=== PATIENT | male | born 1985 | race Caucasian/White ===

== ENCOUNTER 2023-12-29 13:49 | Emergency (ER) | payer OTHER, SELFPAY ==
[2023-12-29 13:57] VITALS: BP 123/82; PULSE 70; RESP 16; TEMP 36.3; O2SAT 99
--- NOTE | 2023-12-29 14:16 | ED.URI ---
HPI - URI/Sore Throat General Chief Complaint: Upper Respiratory Infection Stated Complaint: cough/chills/mouth swelling History of Present Illness HPI Narrative: patient is a 38-year-old male, presents to [facility] with 2 day history of URI symptoms including nasal congestion, sore scratchy throat, clear rhinorrhea and diffuse upper dental pain. He states that he did have an episode of nausea vomiting diarrhea the 1st day of symptom onset however he has not vomited since that time. He does note diffuse dental decay and he has had some dental pain however he is uncertain if this is related to his other symptoms or not. He does believe he has had a fever as he has been hot and then chilled. He denies modifying factors. His significant other is also symptomatic in here today the patient. Related Data Home Medications Medication Instructions Recorded Confirmed acamprosate 333 mg tablet,delayed mg PO 12/29/23 release buspirone 15 mg tablet mg 12/29/23 fluoxetine 40 mg capsule mg 12/29/23 hydroxyzine pamoate 50 mg capsule mg 12/29/23 omeprazole 20 mg capsule,delayed mg 12/29/23 release prazosin 2 mg capsule mg 12/29/23 quetiapine 200 mg tablet mg 12/29/23 sofosbuvir 400 mg-velpatasvir 100 tablet 12/29/23 mg tablet Allergies Allergy/AdvReac Type Severity Reaction Status Date / Time No Known Allergies Allergy Verified 12/29/23 13:56 Review of Systems Constitutional: Constitutional: Reports as per HPI ENT: Reports system reviewed and no additional complaints, except as documented and Reports as per HPI Gastrointestinal: Gastrointestinal: Reports as per HPI Exam Const: General: healthy appearing and no acute distress Nutritional Appearance: well nourished Orientation/consciousness: patient oriented x3 HENMT: Head: normal to inspection Ears: external ears normal and TM abnormal ( Retracted bilaterally otherwise unremarkable) Face and sinus: normal facial exam Mouth: Yes Normal oral and palatal mucosa present and Yes lip normal Teeth and gingiva: abnormal tooth and associated gingiva ( diffuse dental decay and gingival erythema to the upper teeth) Other: most teeth are eroded below gingival line Eyes: Conjunctivae: conjunctivae normal Pupils: Equal, round and reactive pupils present EOM: EOMs intact bilaterally Direct Ophthalmoscopy: no photophobia Neck: Neck: normal visual inspection, no lymphadenopathy and no meningeal signs Resp: Effort & Inspection: normal respiratory effort Auscultation: clear to auscultation bilaterally Cardio: Rate: regular rate Rhythm: regular rhythm GI: GI Palp: Yes Soft to palpation, No Tenderness to palpation present (GI), No Guarding due to palpation present (GI), No Rigid due to palpation, No Hernia present, No Palpable mass present and No Rebound tenderness present Skin: General skin exam: normal color Rashes: no rashes Neuro: General: patient oriented x3, moves all extremities, no meningeal signs, no focal motor deficits and CN's II-XI intact bilaterally Cranial nerves: Yes Nystagmus not present Speech: normal speech Extrem: General: normal to inspection Course Course Emergency Course: patient's symptoms are primarily viral in nature however he does have gross dental decay and dental related to dental abscess cannot be excluded without [employer] x-ray capabilities. Plan therefore treat empirically with oral antibiotics, in addition to a cough suppressant to help provide added symptom relief at home. He is encouraged to push fluids and rest. Continue Tylenol and/or ibuprofen as directed [id number] for pain and inflammation /fever relief. Patient verbalized understanding and agreeable to discharge plan of care. He is encouraged to follow-up with a dentist without fail Level of Care: Express Care Visit ([id number]) Vital Signs Vital signs: Vital Signs Temperature 36.3 C L 12/29/23 13:57 Pulse Rate 70 12/29/23 13:57 Respiratory Rate 16
== END 2023-12-29 14:29 | disposition home or self-care (01) ==
PROVIDERS: Emergency Provider Nurse Practitioner Family; PCP Family Medicine
DX: K02.9 Dental caries, unspecified (principal); J06.9 Acute upper respiratory infection, unspecified
CPT/HCPCS: 99203; G0463

== ENCOUNTER 2024-07-07 12:17 | Emergency (ER) | payer OTHER, SELFPAY ==
--- OUTSIDE RECORDS SUMMARY | 2024-07-07 12:32 | XMS_ITS | Referral Summary ---
Author Organization [facility] Office Center Address [address] [place] [address] Care Team Providers Care Process Treater Name Role Phone Rachna Diaz NP Primary Care Provider [phone] Allergies No known active allergies Medications QUEtiapine (SEROquel) 200 mg tablet Take 1 tablet (200 mg total) by mouth nightly 4 Active prazosin (MINIPRESS) 2 mg capsule Take 1 capsule (2 mg total) by mouth nightly [address] (CAMPRAL) 333 mg EC tabletIndication s:alcoholism Take 2 tablets (666 mg total) by mouth 3 (three) times a day 180 tablet 5 4 Active sofosbuvir-velpa tasvir (Epclusa) 400-100 mg tablet per tabletIndication s:Positive hepatitis C antibody test Take 1 tablet by mouth daily 28 tablet 2 4 Active Additional Information Patient not taking.Reported on 03/08/2024 albuterol HFA (PROVENTIL HFA,VENTOLIN HFA,PROAIR HFA) 90 mcg/actuation inhalerIndicatio ns:Mild intermittent asthma without complication Inhale 2 puffs every 4 (four) hours as needed for wheezing or shortness of breath 1 each 5 4 Active busPIRone (BUSPAR) 15 mg tabletIndication s:RACHEL (generalized anxiety disorder) Take 1 tablet (15 mg total) by mouth 2 (two) times a day 60 tablet 5 4 Active FLUoxetine (PROzac) 60 mg tabletIndication s:Mild episode of recurrent major depressive disorder (HCC),RACHEL (generalized anxiety disorder) Take 1 tablet (60 mg total) by mouth daily 30 tablet 5 4 Active hydrOXYzine (VISTARIL) 50 mg capsuleIndicatio ns:RACHEL (generalized anxiety disorder) Take 1 capsule (50 mg total) by mouth 4 (four) times a day as needed for itching 60 capsule 1 4 Active omeprazole (PriLOSEC) 20 mg capsule TAKE 1 CAPSULE BY MOUTH TWICE A DAY 60 capsule 2 4 Active Active Problems Problem Noted Date Diagnosed Date History of hepatitis C 03/08/2024 Assessment & Plan (03/08/2024 10:33 AM CDT): Patient completed 3 months of Epclusa in October/November. He has not had follow-up labs. I will obtain labs today to confirm SVR. If hepatitis C is not detected, his hepatitis C has been cured and he will need no further follow-up. He should remain sober from alcohol and drug use. Shortness of breath 09/07/2023 Mild intermittent asthma without complication Assessment & Plan (09/07/2023 1:54 PM CDT): Chronic, stable, controlled with PRN medication Continued on albuterol as directed as needed Generalized pain 09/07/2023 Assessment & Plan (09/07/2023 1:54 PM CDT): Chronic, stable, controlled with medication Continued on PRN ibuprofen Annual physical exam 05/31/2023 Assessment & Plan (06/02/2023 5:48 AM LOCKER OPERATOR): Reviewed past and current medical history, surgical history, social history, family history, current medications, and allergies. The chart was updated to identify any changes in these areas. A ROS and PE were performed. Medications and labs were ordered and referrals were made. Discussed recommended immunizations. Patient will follow-up in 4 weeks for further evaluation and management or sooner if needed. Recurrent major depression 05/25/2023 Assessment & Plan (09/07/2023 1:51 PM CDT): Chronic, stable, controlled with medication Reviewed PHQ-9 Continued on fluoxetine 60 mg daily Advised if suicidal ideation or thoughts of harming self or others, to go to ER and/or call [phone] for assistance, agree to contract for safety Assessment & Plan (07/12/2023 5:30 PM LOCKER OPERATOR): Chronic, improved per patient report Reviewed PHQ-9=8, RACHEL-7=6 Continued on Seroquel and fluoxetine Encouraged to establish with Psychiatry and Psychology Advised if suicidal ideation thoughts of self or others, go to ER and/or call [phone] for assistance, agree to contract for safety Assessment & Plan (06/02/2023 5:44 AM LOCKER OPERATOR): Chronic, improved on medication Continued on fluoxetine and Seroquel Encouraged to schedule appointment with Psychiatry and Psychology as previously discussed, list of local providers given, however also recommended checking with insurance company for a list of providers covered under his plan Advised if suicidal ideation or thoughts of harming self or others, to go to ER and/or call [phone] for assistance, agreed to contract for safety Assessment & Plan (05/28/2023 11:01 AM LOCKER OPERATOR): Chronic, uncontrolled, off medication Reviewed PHQ-9-13 Restarted fluoxetine 20 mg daily Advised if suicidal ideation or thoughts of harming self or others, to go to ER and/or call [phone] for assistance, agree to contract for safety Encouraged to establish with a psychiatrist and psychologist or therapist, provided with a list of local providers, however advised checking with insurance for providers that are covered under plan RACHEL (generalized anxiety disorder) 05/25/2023 Assessment & Plan (09/07/2023 1:51 PM CDT): Chronic, stable, controlled on medication Reviewed RACHEL-7 Continued on fluoxetine, buspirone, and hydroxyzine Assessment & Plan (07/12/2023 5:28 PM LOCKER OPERATOR): Chronic, improved per patient report Reviewed PHQ-9=8, RACHEL-7=6 Continued on Seroquel, fluoxetine, buspirone, and hydroxyzine Encouraged to establish with psychiatry and psychologist Assessment & Plan (06/02/2023 5:44 AM LOCKER OPERATOR): Chronic, improved on medication Continued on fluoxetine and Seroquel Encouraged to schedule appointment with Psychiatry and Psychology as previously discussed, list of local providers given, however also recommended checking with insurance company for a list of providers covered under his plan Assessment & Plan (05/28/2023 11:02 AM LOCKER OPERATOR): Chronic, uncontrolled, off medication Reviewed RACHEL-7=19 Restarted fluoxetine 20 mg daily and started on hydroxyzine 25 mg twice daily as needed Encouraged to establish with a psychiatrist and psychologist or therapist, provided with a list of local providers, however advised checking with insurance for providers that are covered under plan 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) 05/25/2023 Assessment & Plan (07/12/2023 5:28 PM LOCKER OPERATOR): Chronicity and stability unknown Continued on hydroxyzine and prazosin Encouraged to establish with Psychiatry and Psychology Assessment & Plan (06/02/2023 5:44 AM LOCKER OPERATOR): Chronic, improved on medication Continued on fluoxetine and Seroquel Assessment & Plan (05/28/2023 11:06 AM LOCKER OPERATOR): Chronic, uncontrolled, off medication Restarted Seroquel 50 mg HS Advised abstinence from alcohol Encouraged to establish with a psychiatrist and psychologist or therapist, provided with a list of local providers, however advised checking with insurance for providers that are covered under plan Need for vaccination 05/25/2023 Vitamin D deficiency 05/25/2023 Assessment & Plan (07/12/2023 5:30 PM LOCKER OPERATOR): Chronicity and stability unknown, currently low normal (34) Advised can take vitamin D3 2000 IU daily with a meal Assessment & Plan (06/02/2023 5:44 AM LOCKER OPERATOR): Chronicity and stability unknown, normal at last check Will monitor periodically Assessment & Plan (05/28/2023 11:05 AM LOCKER OPERATOR): Chronic, stability unknown, not on supplement Ordered vitamin-D 25 OH Screening for thyroid disorder 05/25/2023 Screening, anemia, deficiency, iron 05/25/2023 Alcohol abuse 05/25/2023 Assessment & Plan (03/08/2024 10:37 AM CDT): Patient with history of alcohol use disorder. He has attended rehab program and decreased alcohol use but is still drinking 2-3 shots liquor daily. He did not think acamprosate helped decrease cravings. I will obtain updated labs today. He should work on maintaining sobriety and attend therapy or AA. Discussed the importance of this. If liver labs are normal, he can follow up with PCP. His reflux pain and feeling warm/hot are likely related to alcohol use. Imaging did not show anything that would be causing the pain. Will obtain TSH to rule out thyroid issues. Recommend he avoid foods/drinks that make pain worse. Continue omeprazole. Can consider EGD but recommend he see local GI for workup. Assessment & Plan (08/18/2023 8:28 PM LOCKER OPERATOR): Patient with history of alcohol use disorder. He recently attended rehab program and has been sober for 2 weeks. Patient reports he is still craving alcohol. I will obtain updated labs and FibroSCan today. Patient is agreeable to taking medication to help with cravings. I will determine if patient is a candidate for naltrexone or acamprosate after reviewing labs. He should work on maintaining sobriety and attend therapy or AA. Assessment & Plan (07/12/2023 5:28 PM LOCKER OPERATOR): Chronic, currently in remission, recently discharged from inpatient treatment on 07/06/2023 Encouraged continued abstinence Instructed to establish with Psychiatry and Psychology and suggested joining a support group Advised to keep appointment on 08/18/2023 with clinical pharmacist Assessment & Plan (06/02/2023 5:45 AM LOCKER OPERATOR): Chronic Encouraged to establish with Psychiatry and Psychology and to contact [facility] for assistance with alcohol abuse Assessment & Plan (05/28/2023 11:05 AM LOCKER OPERATOR): Advised abstinence from alcohol Encouraged to establish with a psychiatrist and psychologist or therapist, provided with a list of local providers, however advised checking with insurance for providers that are covered under plan Positive hepatitis C antibody test 05/25/2023 Assessment & Plan (08/18/2023 4:22 PM LOCKER OPERATOR): Patient with hepatitis C, treatment naive. Multiple risk factors present including prior IV drug use, tattoos, incarceration. He is agreeable to proceeding with treatment. He has elevated ALP and liver enzymes. Mot recent abdominal imaging was CT on 12/01/22 that showed hepatic steatosis. Patient to get updated labs today as well as FibroScan to evaluate degree of steatosis and if any fibrosis is present. I discussed the natural history of chronic hepatitis C, including the potential for progression to cirrhosis, liver failure, development of liver cancer, need for a liver transplant, and . I discussed currently available antiviral agents, including their efficacy and adverse effects. I discussed risk factors for transmission, based on blood to blood contact. I recommended not sharing a toothbrush or razor blade. The risk of sexual transmission is less than 1% in a monogamous relationship. However, if there is concern, a condom should prevent transmission of the hepatitis C virus. I discussed the effect of heavy alcohol use on hepatitis C and how the disease can be accelerated. We discussed currently available antiviral therapy, including its efficacy, side effects, and cost. If there are concerns of potential treatment side effects, the patient is asked to contact my office. Pre-treatment, end of treatment and three-month follow up labs will be obtained. Currently, I see no obvious contraindications to antiviral therapy. He will return to clinic in 6 months. Assessment & Plan (07/12/2023 5:27 PM LOCKER OPERATOR): Chronicity and stability unknown Advised continued abstinence from alcohol Encouraged to keep appointment on 08/18/2023 with clinical pharmacist Assessment & Plan (06/02/2023 5:47 AM LOCKER OPERATOR): Recent diagnosis Reviewed labs dated 05/25/2023 Encouraged to keep appointment with hepatology on 08/18/23 Low TSH level 05/25/2023 Assessment & Plan (06/02/2023 5:47 AM LOCKER OPERATOR): Chronicity and stability unknown, with normal free T4 Ordered TSH level to be done in 4-8 weeks Resolved Problems Problem Noted Date Diagnosed Date Resolved Date Acute hepatitis C virus infection 09/07/2023 03/08/2024 Assessment & Plan (09/07/2023 1:52 PM CDT): Acute Continued on Epsula Discontinued omeprazole Gave hepatitis A vaccine, will return in 6 months for 2nd to complete the series Encouraged to follow-up with clinical pharmacist as recommended Encounter to establish care 05/25/2023 05/31/2023 Assessment & Plan (05/28/2023 11:05 AM LOCKER OPERATOR): Reviewed past and current medical history, surgical history, social history, family history, current medications, and allergies. The chart was updated to identify any changes in these areas. A ROS and PE were performed. Medications and labs were ordered and referrals were made. Reviewed recommended immunizations. Patient will follow-up in 4 weeks for further evaluation and management or sooner if needed. History of hepatitis C 05/25/202306/02 Assessment & Plan (05/28/2023 11:03 AM LOCKER OPERATOR): Ordered hepatitis C antibody test Elevated alkaline phosphatase level 05/25/2023 03/08/2024 Assessment & Plan (07/12/2023 5:27 PM LOCKER OPERATOR): Chronicity and stability unknown Advised continued abstinence from alcohol Encouraged to keep appointment on 08/18/2023 with clinical pharmacist Assessment & Plan (06/02/2023 5:47 AM LOCKER OPERATOR): Chronic, stable Reviewed labs dated 05/25/2023 Encouraged to keep appointment with hepatology on 08/18/23 Elevated liver enzymes 05/25/202303/08 Assessment & Plan (07/12/2023 5:27 PM LOCKER OPERATOR): Chronicity and stability unknown Advised continued abstinence from alcohol Encouraged to keep appointment on 08/18/2023 with clinical pharmacist Assessment & Plan (06/02/2023 5:47 AM LOCKER OPERATOR): Recent diagnosis Reviewed labs dated 05/25/2023 Encouraged to keep appointment with hepatology on 08/18/23 Immunizations Name Administration Dates Next Due Hep A, Adult 09/08/2023 Influenza, Quadrivalent, Spl it, Preservative Free, Intramuscular 05/31/2023 Influenza, Unspecified 03/13/2022 Tdap 11/05/2017 Social History Tobacco Use Types Packs/Day Years Used Date Smoking Tobacco: Every Day Cigarettes 0.7 4.1 Started: 2020 Tobacco Cessation:Ready to Q uit: Not Asked; Counseling Given: Not Answered Alcohol Use Standard Drinks/Week Comments Not Currently 0 (1 standard drink = 0.6 oz pur e alcohol) AUDIT-C Answer Date Recorded Q1: How often do you have a drink containing alcohol? 4 or more times a week 05/25/2023 Q2: How many drinks containi ng alcohol do you have on a typical day when you are drinking? 7 to 9 Q3: How often do you have si x or more drinks on one occasion? Daily or almost daily 05/25/2023 PHQ-2 Answer Date Recorded PHQ-2 Total Score (If total score is 3 or more points, staff should administer the PHQ-9) 3 09/07/2023 Personal Safety Answer Date Recorded Have you ever been in or are you currently in a harmful physical or emotional relationship or is someone making you feel afraid or unsafe? Denies 11/04/2023 Sex and Gender Information Value Date Recorded Sex Assigned at Not on file Legal Sex Male 12:52 AM LOCKER OPERATOR Gender Identity Not on file Sexual Orientation Not on file Last Filed Vital Signs Vital Sign Reading Time Taken Comments Blood Pressure 130/77 03/08/2024 10:01 AM CDT Pulse 72 03/08/2024 10:01 AM CDT Temperature 36.7 ??C (98 ??F) 03/08/2024 10:01 AM CDT Respiratory Rate 16 03/08/2024 10:01 AM CDT Oxygen Saturation 96% 03/08/2024 10:01 AM CDT Inhaled Oxygen Concentration - - Weight 71.9 kg (158 lb 9.6 oz) 03/08/2024 10:01 AM CDT Height 180.3 cm (5' 11 ) 03/08/2024 10:01 AM CDT Body Mass Index 22.12 03/08/2024 10:01 AM CDT Plan of Treatment Not on file Procedures Procedure Name Priority Date/Time Associated Diagnosis Comments HEPATITIS C RNA, QUANTITATIVE, PCR Routine 03/08/2024 10:34 AM CDT History of hepatitis C from Last 3 Months or Most Recently Relevant to Health Maintenance Results * Hepatitis C (HCV) RNA PCR, quantitative Blood (03/08/2024 10:34 AM CDT) [facility] HCV RNA result Not Detected [facility] Comment: The quantifiable range of this assay is 15 IU/mL to 100,000,000 IU/mL (1.18 log IU/mL to 8.00 log IU/mL). Testing was performed by the [facility] 6800 HCV Test ([employer] Testing performed at [facility] Current Interpretive Data was last revised on 2021 Blood 03/08/2024 10:3 4 AM CDT 03/08/2024 11:26 AM CDT us Sera Bruce NP LAB MICROBIOLOGY - GENER AL ORDERABLES Final Result JANINA [facility] Department [place] [address] [facility] from Last 3 Months or Most Recently Relevant to Health Maintenance Insurance [employer] [facility] [employer] [facility] Care Teams Process Treater Relationship Specialty Start Date End Date Rachna Diaz NP [address] [place] [id number] PCP - General Family Medicine 05/31/23
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
--- OUTSIDE RECORDS SUMMARY | 2024-07-07 12:33 | XMS_ITS | Clinical Summary ---
Author Organization [facility] Address [address] [place] [address]. [place] [address] [place] [address] Care Team Providers Care Office Receptionist Name Role Phone None, Provider MD Primary Care Provider Unavaila ble Allergies No known active allergies Medications ibuprofen 600 MG tablet Take 1 tablet (600 mg total) by mouth every 6 (six) hours as needed for Pain. 20 tablet 8 Active acetaminophen 500 MG tabletIndications:P ATIENT TOOK 2000 MG. @ 0700 Take 1,000 mg by mouth every 6 (six) hours as needed for Pain. Active cyclobenzaprine 5 MG tablet Take 1 tablet (5 mg total) by mouth 3 (three) times daily as needed for Muscle Spasms. 15 tablet 8 Active colchicine 0.6 MG tablet Take 1 tablet (0.6 mg total) by mouth daily. Take 2 tabs by mouth. Wait one hour, take final tab 3 tablet 2 Active naloxone 4 MG/0.1ML nasal spray 1 spray by Nasal route as needed for Opioid reversal. 2 each 2 Active omeprazole (PRILOSEC) 20 MG capsule Take 1 capsule (20 mg total) by mouth daily. 30 capsule 3 Active ondansetron (ZOFRAN-ODT) 4 MG disintegrating tablet Take 1 tablet (4 mg total) by mouth every 8 (eight) hours as needed for Nausea. 20 tablet 3 Active Social History Tobacco Use Types Packs/Day Years Used Date Smoking Tobacco: Every Day Cigarettes Smokeless Tobacco: Never Tobacco Cessation:Ready to Q uit: Not Asked; Counseling Given: Not Answered Alcohol Use Standard Drinks/Week Comments Yes 10 (1 standard drink = 0.6 oz pu re alcohol) Daily Sex and Gender Information Value Date Recorded Sex Assigned at Not on file Legal Sex Male 5:48 PM CDT Gender Identity Not on file Sexual Orientation Not on file Last Filed Vital Signs Vital Sign Reading Time Taken Comments Blood Pressure 129/82 12/01/2022 7:55 PM CDT Pulse 71 12/01/2022 7:55 PM CDT Temperature 36.4 ??C (97.6 ??F) 12/01/2022 2:45 PM CD T Respiratory Rate 19 12/01/2022 2:45 PM CDT Oxygen Saturation 99% 12/01/2022 7:55 PM CDT Inhaled Oxygen Concentration - - Weight 68 kg (150 lb) 12/01/2022 2:45 PM CDT Height 182.9 cm (6') 12/01/2022 2:45 PM CDT Body Mass Index 20.34 12/01/2022 2:45 PM CDT Plan of Treatment Health Maintenance Due Date Last Done Comments Annual Physical 10/14/1990 Pneumococcal Vaccine: Pediat rics (0 to 5 Years) and At-Risk Patients (6 to 64 Years) (1 of 2 - PCV) 10/14/1993 Hepatitis C 10/14/2005 Hepatitis B Vaccines (1 of 3 - 19+ 3-dose series) 10/14/2006 COVID-19 Vaccine (2023-2 5 season) 2024 Influenza Adult (#1) 2024 DTaP, Tdap and Td Vaccines ( 2 - Td or Tdap) 11/06/2027 11/05/2017 HPV Vaccines Aged Out No longer eligi ble based on patient's age to complete this topic Meningococcal B Vaccine Aged Out No l onger eligible based on patient's age to complete this topic Meningococcal Vaccine Aged Out No sandee irving eligible based on patient's age to complete this topic RSV Immunizations Under 20 Months Aged Out No longer eligible based on patient's age to complete this topic Insurance [employer] Care Teams Office Receptionist Relationship Specialty Start Date End Date None, Provider, PCP - General 06/03/21
--- OUTSIDE RECORDS SUMMARY | 2024-07-07 12:33 | XMS_ITS | Clinical Summary ---
Author Organization [facility] [employer] Address [address] [place] [address] Care Team Providers Care Color Specialist Name Role Phone Brooks Blanchard MD Primary Care Provider Unav ailable Source Comments [facility] [employer],non-owned Affiliates and Associated Physician Practices is amultiple site organization consisting of ambulatory clinics and hospital sitesin [place], [place], [place] and [place]. This disclosure is being madepursuant to the Care Everywhere program and may not contain all information available regarding this patient. Last updated 18.[facility] [employer] Allergies No known active allergies Medications * [...] 01/17/2018 2:28 PM CDT Plan of Treatment Health Maintenance Due Date Last Done Comments HIV SCREENING 10/14/2002 HEPATITIS C SCREENING 10/10/2005 HEPATITIS B VACCINE (1 of 3 - 19+ 3-dose series) 10/14/2006 COVID-19 VACCINE (2023-2 5 season) 2024 INFLUENZA VACCINE (#1) 2024 DEPRESSION SCREENING 06/13/2024 DTAP/TDAP/TD VACCINES (2 - T d or Tdap) 11/06/2027 11/05/2017 ZOSTER VACCINE (1 of 2) 10/14/2037 HIB VACCINE Aged Out No longer eligi ble based on patient's age to complete this topic HPV VACCINE Aged Out No longer eligi ble based on patient's age to complete this topic MENINGOCOCCAL (Group B) VACCINE Aged Out No longer eligible based on patient's age to complete this topic MENINGOCOCCAL VACCINE Aged Out No sandee irving eligible based on patient's age to complete this topic PNEUMOCOCCAL VACCINE Aged Out No long er eligible based on patient's age to complete this topic Advance Directives * Full Code (Latest Code Status on File) Date Activated Date Inactivated Comments 11/06/2017 3:11 AM 11/25/2017 4:00 PM Care Teams Color Specialist Relationship Specialty Start Date End Date Brooks Blanchard MD PCP - General Family Medicine 11/05/17
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
--- OUTSIDE RECORDS SUMMARY | 2024-07-07 12:33 | XMS_ITS | Patient Health Record ---
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 HN referred the client to a disaster recovery manager. Client was agreeable with the referrals. Referral Priority Routine Medications Medication SIG (Take, Route, Frequency, Duration) Notes Start Date End Date Status busPIRone HCl 15 MG 1 tablet Orally Twic e a day for 30 days Active FLUoxetine HCl 60 MG 1 tablet Orally Onc e a day for 30 days Active hydrOXYzine Pamoate 50 MG 1 capsule as n eeded for anxiety Orally three times a day for 30 days 12/09/2023 Active Epclusa 400-100 MG 1 tablet Orally Once a day Active QUEtiapine Fumarate 200 MG 0.5-1 tablet as needed for sleep Orally Once a day for 30 days 12/09/2023 Active Social History Tobacco Use: Social History [...] Education- Some college 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 Inpt Psych Hospitalizations - [facility] 05/2023 - Alcohol addiction, [facility] 2018 - [...] Problem Status W/U Status Risk Notes Problem Posttraumatic stress disorder (79833928) PTSD (post-traumat ic stress disorder) (F43.10) 12/09/19 Active confirmed Problem Hepatitis C (83601047) Hepatitis C (B19.20) 12/09/19 Active confirmed Currently receiving antiviral treatment Problem Generalized anxiety disorder (41479735) RACHEL (generalized anxiety disorder) (F41.1) 12/09/19 Active confirmed Problem Major depressive disorder (098870419) MDD (major depressive disorder) (F32.9) 12/09/19 Active confirmed Problem Disorder caused by alcohol (disorder) (436972976) Alcohol use disorder (F10.99) 12/09/19 Active confirmed Problem History of opioid abuse (179790291030068 ) History of opioid abuse (F11.11) 12/09/19 Active confirmed Vital Signs Height 5ft 11 in in 12/09/2023 Weight 160 lbs 12/09/2023 BMI 22.31 kg/m2 12/09/2023 Encounters Encounter Location Date Provider Diagnosis [address] [address] 12/09/2023 Tanisha Young MDD (major depressive disorder) F32.9 ; PTSD (post-traumatic stress disorder) F43.10 ; Alcohol use disorder F10.99 ; RACHEL (generalized anxiety disorder) F41.1 ; History of opioid abuse F11.11 and Hepatitis C B19.20 Assessments Encounter Date Diagnosis (ICD Code) Assessment Notes Treatment Notes Treatment Clinical Notes Section Notes 12/09/2023 PTSD (post-traumatic stress disorder) (ICD-10 - F43.10) 12/09/2023 MDD (major depressive disorder) (ICD-10 - F32.9) 12/09/2023 Alcohol use disorder (ICD-10 - F10.99) [...] or be administered own oral medications per [facility] protocols. Provided informed consent with understanding of side effects, adverse effects, risks and benefits as well as alternative treatments as previously discussed and with the above recommended medications & other aspects of the treatment program. Agrees to return sooner if symptoms worsen or suicidal or homicidal ideations occur. Plan Of Treatment No Information Insurance Providers Payer Name Payer Address Payer Phone Subscriber Number Group Number Insured Name Patient Relationship to Insured Coverage Start Date Coverage End Date [facility] [address] [place] [phone] [id number] Baltaazr Radfrod Self - patient is the insured [address] [facility] [address] [place] [address] [phone] [id number] Baltazar Radford Self - patient is the insured 4 Medical (General) History Medical History History ICD Code anxiety depression hep c alcohol abuse drug abuse
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
[2024-07-07 12:41] VITALS: BP 131/80; PULSE 67; RESP 16; TEMP 36.6; O2SAT 99
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
== END 2024-07-07 13:25 | disposition home or self-care (01) ==
PROVIDERS: Emergency Provider Nurse Practitioner; PCP Family Medicine
DX: K02.9 Dental caries, unspecified (principal); F17.210 Nicotine dependence, cigarettes, uncomplicated
CPT/HCPCS: 99213; G0463

== ENCOUNTER 2024-08-02 10:15 | Emergency (ER) | payer OTHER, SELFPAY ==
[2024-08-02 10:26] VITALS: BP 118/77; PULSE 109; RESP 16; TEMP 36.5; O2SAT 99
--- OUTSIDE RECORDS SUMMARY | 2024-08-02 10:31 | XMS_ITS | Referral Summary ---
Author Organization [facility] Address [address] [place] [address] Care Team Providers Care Closet Builder Name Role Phone Rachna Diaz NP Primary Care Provider [phone] Allergies No known active allergies Medications QUEtiapine [...] 05/31/2023 Assessment & Plan (06/02/2023 5:48 AM COIL STRAPPER): Reviewed past and current medical history, surgical [...] safety Assessment & Plan (07/12/2023 5:30 PM COIL STRAPPER): Chronic, improved per patient report Reviewed PHQ-9=8, RACHEL-7=6 Continued on Seroquel and fluoxetine Encouraged to establish with Psychiatry and Psychology Advised if suicidal ideation thoughts of self or others, go to ER and/or call [phone] for assistance, agree to contract for safety Assessment & Plan (06/02/2023 5:44 AM COIL STRAPPER): Chronic, improved on medication Continued on fluoxetine [...] safety Assessment & Plan (05/28/2023 11:01 AM COIL STRAPPER): Chronic, uncontrolled, off medication Reviewed PHQ-9-13 Restarted [...] hydroxyzine Assessment & Plan (07/12/2023 5:28 PM COIL STRAPPER): Chronic, improved per patient report Reviewed PHQ-9=8, RACHEL-7=6 Continued on Seroquel, fluoxetine, buspirone, and hydroxyzine Encouraged to establish with psychiatry and psychologist Assessment & Plan (06/02/2023 5:44 AM COIL STRAPPER): Chronic, improved on medication Continued on fluoxetine and Seroquel Encouraged to schedule appointment with Psychiatry and Psychology as previously discussed, list of local providers given, however also recommended checking with insurance company for a list of providers covered under his plan Assessment & Plan (05/28/2023 11:02 AM COIL STRAPPER): Chronic, uncontrolled, off medication Reviewed RACHEL-7=19 Restarted fluoxetine 20 mg daily and started on hydroxyzine 25 mg twice daily as needed Encouraged to establish with a psychiatrist and psychologist or therapist, provided with a list of local providers, however advised checking with insurance for providers that are covered under plan 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) 05/25/2023 Assessment & Plan (07/12/2023 5:28 PM COIL STRAPPER): Chronicity and stability unknown Continued on hydroxyzine and prazosin Encouraged to establish with Psychiatry and Psychology Assessment & Plan (06/02/2023 5:44 AM COIL STRAPPER): Chronic, improved on medication Continued on fluoxetine and Seroquel Assessment & Plan (05/28/2023 11:06 AM COIL STRAPPER): Chronic, uncontrolled, off medication Restarted Seroquel 50 mg HS Advised abstinence from alcohol Encouraged to establish with a psychiatrist and psychologist or therapist, provided with a list of local providers, however advised checking with insurance for providers that are covered under plan Need for vaccination 05/25/2023 Vitamin D deficiency 05/25/2023 Assessment & Plan (07/12/2023 5:30 PM COIL STRAPPER): Chronicity and stability unknown, currently low normal (34) Advised can take vitamin D3 2000 IU daily with a meal Assessment & Plan (06/02/2023 5:44 AM COIL STRAPPER): Chronicity and stability unknown, normal at last check Will monitor periodically Assessment & Plan (05/28/2023 11:05 AM COIL STRAPPER): Chronic, stability unknown, not on supplement Ordered [...] workup. Assessment & Plan (08/18/2023 8:28 PM COIL STRAPPER): Patient with history of alcohol use disorder. [...] AA. Assessment & Plan (07/12/2023 5:28 PM COIL STRAPPER): Chronic, currently in remission, recently discharged from inpatient treatment on 07/06/2023 Encouraged continued abstinence Instructed to establish with Psychiatry and Psychology and suggested joining a support group Advised to keep appointment on 08/18/2023 with bus aide Assessment & Plan (06/02/2023 5:45 AM COIL STRAPPER): Chronic Encouraged to establish with Psychiatry and Psychology and to contact [facility] for assistance with alcohol abuse Assessment & Plan (05/28/2023 11:05 AM COIL STRAPPER): Advised abstinence from alcohol Encouraged to establish with a psychiatrist and psychologist or therapist, provided with a list of local providers, however advised checking with insurance for providers that are covered under plan Positive hepatitis C antibody test 05/25/2023 Assessment & Plan (08/18/2023 4:22 PM COIL STRAPPER): Patient with hepatitis C, treatment naive. Multiple [...] months. Assessment & Plan (07/12/2023 5:27 PM COIL STRAPPER): Chronicity and stability unknown Advised continued abstinence from alcohol Encouraged to keep appointment on 08/18/2023 with bus aide Assessment & Plan (06/02/2023 5:47 AM COIL STRAPPER): Recent diagnosis Reviewed labs dated 05/25/2023 Encouraged to keep appointment with hepatology on 08/18/23 Low TSH level 05/25/2023 Assessment & Plan (06/02/2023 5:47 AM COIL STRAPPER): Chronicity and stability unknown, with normal free [...] complete the series Encouraged to follow-up with bus aide as recommended Encounter to establish care 05/25/2023 05/31/2023 Assessment & Plan (05/28/2023 11:05 AM COIL STRAPPER): Reviewed past and current medical history, surgical [...] 05/25/202306/02 Assessment & Plan (05/28/2023 11:03 AM COIL STRAPPER): Ordered hepatitis C antibody test Elevated alkaline phosphatase level 05/25/2023 03/08/2024 Assessment & Plan (07/12/2023 5:27 PM COIL STRAPPER): Chronicity and stability unknown Advised continued abstinence from alcohol Encouraged to keep appointment on 08/18/2023 with bus aide Assessment & Plan (06/02/2023 5:47 AM COIL STRAPPER): Chronic, stable Reviewed labs dated 05/25/2023 Encouraged to keep appointment with hepatology on 08/18/23 Elevated liver enzymes 05/25/202303/08 Assessment & Plan (07/12/2023 5:27 PM COIL STRAPPER): Chronicity and stability unknown Advised continued abstinence from alcohol Encouraged to keep appointment on 08/18/2023 with bus aide Assessment & Plan (06/02/2023 5:47 AM COIL STRAPPER): Recent diagnosis Reviewed labs dated 05/25/2023 Encouraged to keep appointment with hepatology on 08/18/23 Immunizations Immunization Administration Dates Next Due Hep A, Adult 09/08/2023 Influenza, Quadrivalent, Spl it, Preservative Free, Intramuscular 05/31/2023 Influenza, Unspecified 03/13/2022 Tdap 11/05/2017 Social History Tobacco Use Types Packs/Day Years Used Date Smoking Tobacco: Every Day Cigarettes 0.8 4.1 Started: 2020 Tobacco Cessation:Ready to Q [...] on file Legal Sex Male 12:52 AM COIL STRAPPER Gender Identity Not on file Sexual Orientation Not on file Last Filed Vital Signs Vital Sign Reading Time Taken Comments Blood Pressure 130/77 03/08/2024 10:01 AM CDT Pulse 72 03/08/2024 10:01 AM CDT Temperature 36.7 C (98 F) 03/08/2024 10:01 AM CDT Respiratory Rate 16 [...] PCR, quantitative Blood (03/08/2024 10:34 AM CDT) [facility] HCV RNA result Not Detected [facility] Comment: The quantifiable range of this assay is 15 IU/mL to 100,000,000 IU/mL (1.18 log IU/mL to 8.00 log IU/mL). Testing was performed by the [facility] Test ([employer] Testing performed at [facility] Current Interpretive Data was last revised on 2021 Blood 03/08/2024 10:3 4 AM CDT 03/08/2024 11:26 AM CDT us Sera Bruce NP LAB MICROBIOLOGY - GENER AL ORDERABLES Final Result JANINA [facility] Department [place] [address] [facility] from Last 3 Months or Most Recently Relevant to Health Maintenance Insurance [facility] [facility] [employer] [facility] Care Teams Closet Builder Relationship Specialty Start Date End Date Rachna Diaz NP [address] [place] [id number] PCP - General Family Medicine 05/31/23
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
--- OUTSIDE RECORDS SUMMARY | 2024-08-02 10:32 | XMS_ITS | Referral Summary ---
Author Organization [facility] Address [address] [place] [address] Care Team Providers Care Girls Tennis Coach Name Role Phone Brooks Blanchard MD Primary Care Provider Unav ailable Source Comments [facility],non-owned Affiliates and Associated Physician Practices is amultiple site organization consisting of ambulatory clinics and hospital sitesin [place], [place], [place] and [place]. This disclosure is being madepursuant to the Care Everywhere program and may not contain all information available regarding this patient. Last updated 18.[facility] Allergies No known active allergies Medications * [...] 120 01/17/2018 2:28 PM CDT Temperature 36.6 C (97.9 F) 01/17/2018 2:28 PM CDT Respiratory Rate 18 11/25/2017 1:29 PM CDT [...] 3:11 AM 11/25/2017 4:00 PM Care Teams Girls Tennis Coach Relationship Specialty Start Date End Date Brooks Blanchard MD PCP - General Family Medicine 11/05/17
--- OUTSIDE RECORDS SUMMARY | 2024-08-02 10:32 | XMS_ITS | Clinical Summary ---
Author Organization [facility] Address [address] [place] [address] Care Team Providers Care Clinical Trials Systems Administrator Name Role Phone Brooks Blanchard MD Primary Care Provider Unav ailable Source Comments [facility],non-owned Affiliates and Associated Physician Practices is amultiple site organization consisting of ambulatory clinics and hospital sitesin [place], [place], [place] and [place]. This disclosure is being madepursuant to the Care Everywhere program and may not contain all information available regarding this patient. Last updated 18.[facility] Allergies No known active allergies Medications * [...] 3:11 AM 11/25/2017 4:00 PM Care Teams Clinical Trials Systems Administrator Relationship Specialty Start Date End Date Brooks Blanchard MD PCP - General Family Medicine 11/05/17
--- OUTSIDE RECORDS SUMMARY | 2024-08-02 10:32 | XMS_ITS | Clinical Summary ---
Author Organization [facility] Address [address] [place] [address] Care Team Providers Care Notched Blade Loader Name Role Phone None, Provider MD Primary [...] 71 12/01/2022 7:55 PM CDT Temperature 36.4 C (97.6 F) 12/01/2022 2:45 PM CDT Respiratory Rate 19 12/01/2022 2:45 PM CDT [...] complete this topic Insurance [employer] Care Teams Notched Blade Loader Relationship Specialty Start Date End Date None, Provider, PCP - General 06/03/21
--- OUTSIDE RECORDS SUMMARY | 2024-08-02 10:32 | XMS_ITS | Clinical Summary ---
Author Organization [facility] Address [address] [place] [address] Care Team Providers Care X Ray Technologist Name Role Phone Rachna Diaz NP Primary Care Provider [phone] Allergies No known active allergies Medications QUEtiapine [...] 05/31/2023 Assessment & Plan (06/02/2023 5:48 AM PROCESS AREA SUPERVISOR): Reviewed past and current medical history, surgical [...] safety Assessment & Plan (07/12/2023 5:30 PM PROCESS AREA SUPERVISOR): Chronic, improved per patient report Reviewed PHQ-9=8, RACHEL-7=6 Continued on Seroquel and fluoxetine Encouraged to establish with Psychiatry and Psychology Advised if suicidal ideation thoughts of self or others, go to ER and/or call [phone] for assistance, agree to contract for safety Assessment & Plan (06/02/2023 5:44 AM PROCESS AREA SUPERVISOR): Chronic, improved on medication Continued on fluoxetine [...] safety Assessment & Plan (05/28/2023 11:01 AM PROCESS AREA SUPERVISOR): Chronic, uncontrolled, off medication Reviewed PHQ-9-13 Restarted [...] hydroxyzine Assessment & Plan (07/12/2023 5:28 PM PROCESS AREA SUPERVISOR): Chronic, improved per patient report Reviewed PHQ-9=8, RACHEL-7=6 Continued on Seroquel, fluoxetine, buspirone, and hydroxyzine Encouraged to establish with psychiatry and psychologist Assessment & Plan (06/02/2023 5:44 AM PROCESS AREA SUPERVISOR): Chronic, improved on medication Continued on fluoxetine and Seroquel Encouraged to schedule appointment with Psychiatry and Psychology as previously discussed, list of local providers given, however also recommended checking with insurance company for a list of providers covered under his plan Assessment & Plan (05/28/2023 11:02 AM PROCESS AREA SUPERVISOR): Chronic, uncontrolled, off medication Reviewed RACHEL-7=19 Restarted fluoxetine 20 mg daily and started on hydroxyzine 25 mg twice daily as needed Encouraged to establish with a psychiatrist and psychologist or therapist, provided with a list of local providers, however advised checking with insurance for providers that are covered under plan 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) 05/25/2023 Assessment & Plan (07/12/2023 5:28 PM PROCESS AREA SUPERVISOR): Chronicity and stability unknown Continued on hydroxyzine and prazosin Encouraged to establish with Psychiatry and Psychology Assessment & Plan (06/02/2023 5:44 AM PROCESS AREA SUPERVISOR): Chronic, improved on medication Continued on fluoxetine and Seroquel Assessment & Plan (05/28/2023 11:06 AM PROCESS AREA SUPERVISOR): Chronic, uncontrolled, off medication Restarted Seroquel 50 mg HS Advised abstinence from alcohol Encouraged to establish with a psychiatrist and psychologist or therapist, provided with a list of local providers, however advised checking with insurance for providers that are covered under plan Need for vaccination 05/25/2023 Vitamin D deficiency 05/25/2023 Assessment & Plan (07/12/2023 5:30 PM PROCESS AREA SUPERVISOR): Chronicity and stability unknown, currently low normal (34) Advised can take vitamin D3 2000 IU daily with a meal Assessment & Plan (06/02/2023 5:44 AM PROCESS AREA SUPERVISOR): Chronicity and stability unknown, normal at last check Will monitor periodically Assessment & Plan (05/28/2023 11:05 AM PROCESS AREA SUPERVISOR): Chronic, stability unknown, not on supplement Ordered [...] workup. Assessment & Plan (08/18/2023 8:28 PM PROCESS AREA SUPERVISOR): Patient with history of alcohol use disorder. [...] AA. Assessment & Plan (07/12/2023 5:28 PM PROCESS AREA SUPERVISOR): Chronic, currently in remission, recently discharged from inpatient treatment on 07/06/2023 Encouraged continued abstinence Instructed to establish with Psychiatry and Psychology and suggested joining a support group Advised to keep appointment on 08/18/2023 with head of music Assessment & Plan (06/02/2023 5:45 AM PROCESS AREA SUPERVISOR): Chronic Encouraged to establish with Psychiatry and Psychology and to contact [facility] for assistance with alcohol abuse Assessment & Plan (05/28/2023 11:05 AM PROCESS AREA SUPERVISOR): Advised abstinence from alcohol Encouraged to establish with a psychiatrist and psychologist or therapist, provided with a list of local providers, however advised checking with insurance for providers that are covered under plan Positive hepatitis C antibody test 05/25/2023 Assessment & Plan (08/18/2023 4:22 PM PROCESS AREA SUPERVISOR): Patient with hepatitis C, treatment naive. Multiple [...] months. Assessment & Plan (07/12/2023 5:27 PM PROCESS AREA SUPERVISOR): Chronicity and stability unknown Advised continued abstinence from alcohol Encouraged to keep appointment on 08/18/2023 with head of music Assessment & Plan (06/02/2023 5:47 AM PROCESS AREA SUPERVISOR): Recent diagnosis Reviewed labs dated 05/25/2023 Encouraged to keep appointment with hepatology on 08/18/23 Low TSH level 05/25/2023 Assessment & Plan (06/02/2023 5:47 AM PROCESS AREA SUPERVISOR): Chronicity and stability unknown, with normal free [...] complete the series Encouraged to follow-up with head of music as recommended Encounter to establish care 05/25/2023 05/31/2023 Assessment & Plan (05/28/2023 11:05 AM PROCESS AREA SUPERVISOR): Reviewed past and current medical history, surgical [...] 05/25/202306/02 Assessment & Plan (05/28/2023 11:03 AM PROCESS AREA SUPERVISOR): Ordered hepatitis C antibody test Elevated alkaline phosphatase level 05/25/2023 03/08/2024 Assessment & Plan (07/12/2023 5:27 PM PROCESS AREA SUPERVISOR): Chronicity and stability unknown Advised continued abstinence from alcohol Encouraged to keep appointment on 08/18/2023 with head of music Assessment & Plan (06/02/2023 5:47 AM PROCESS AREA SUPERVISOR): Chronic, stable Reviewed labs dated 05/25/2023 Encouraged to keep appointment with hepatology on 08/18/23 Elevated liver enzymes 05/25/202303/08 Assessment & Plan (07/12/2023 5:27 PM PROCESS AREA SUPERVISOR): Chronicity and stability unknown Advised continued abstinence from alcohol Encouraged to keep appointment on 08/18/2023 with head of music Assessment & Plan (06/02/2023 5:47 AM PROCESS AREA SUPERVISOR): Recent diagnosis Reviewed labs dated 05/25/2023 Encouraged [...] on file Legal Sex Male 12:52 AM PROCESS AREA SUPERVISOR Gender Identity Not on file Sexual Orientation [...] vaccine <65 (1 of 2 - PCV) 10/14/2006 Influenza Vaccine (#1) 2024 05/31/2023, 2021 Regular [...] PCR, quantitative Blood (03/08/2024 10:34 AM CDT) [facility] HCV RNA result Not Detected [facility] Comment: The quantifiable range of this assay is 15 IU/mL to 100,000,000 IU/mL (1.18 log IU/mL to 8.00 log IU/mL). Testing was performed by the [facility] HCV Test ([employer] Testing performed at [facility] Current Interpretive Data was last revised on 2021 Blood 03/08/2024 10:3 4 AM CDT 03/08/2024 11:26 AM CDT Sera Bruce NP LAB MICROBIOLOGY - GENER AL ORDERABLES Final Result JANINA [facility] Department [place] [address] [facility] from Last 3 Months or Most Recently Relevant to Health Maintenance Insurance [facility] Care Teams X Ray Technologist Relationship Specialty Start Date End Date Rachna Diaz NP [address] [place] [address] [phone] PCP - General Family Medicine 05/31/23
--- OUTSIDE RECORDS SUMMARY | 2024-08-02 10:32 | XMS_ITS | Patient Health Summary ---
Author Organization [facility] Address [address] [place] [address] Care Team Providers Care Almond Huller Name Role Phone Brooks Blanchard MD Primary Care Provider Unav ailable Note from [facility],non-owned Affiliates and Associated Physician Practices is amultiple site organization consisting of ambulatory clinics and hospital sitesin [place] and [place]. This disclosure is being madepursuant to the Care Everywhere program and may not contain all information available regarding this patient. Last updated 18.[facility] Allergies No known active allergies Medications [...] is identified. Dictated by Isaiah Ramos MD (associate professor of radiology). I, Dr. AKANKSHA SHI M.D. have personally reviewed and interpreted this examination/study. This report was electronically signed by AKANKSHA SHI M.D. on 11/24/2017 10:16 AM . Narrative 11/24/2017 10:16 [...] is identified. Dictated by Isaiah Ramos MD (associate professor of radiology). Dr. AKANKSHA Ayers M.D. have personally reviewed [...] is normal. Dictated by Isabell Wallis MD (associate professor of radiology). Dr. PIEDAD Ayers have personally reviewed and interpreted this examination/study. This report was electronically signed by PIEDAD CARABALLO on 11/21/2017 10:01 AM . Narrative 11/21/2017 10:01 [...] is normal. Dictated by Isabell Wallis MD (associate professor of radiology). Dr. PIEDAD Ayers have personally reviewed and [...] right rib fractures. Dictated by Enoc Flores (Refrigerating Machine Operator) This report was approved by Enoc Flores M.D. on 11/21/2017 7:[address] DIAZ Ayers M.D. have personally reviewed and interpreted this examination/study. This report was electronically signed by DIAZ PATEL M.D. on 12/03/2017 11:11 AM . Narrative 12/03/2017 11:11 [...] right rib fractures. Dictated by Enoc Flores (Refrigerating Machine Operator) This report was approved by Enoc Flores [...] is included. WBC (corrected for NRBC) 7.6 10 3/uL 11/19/2017 4:59 AM [facility] Total Cell Count 100 11/20/19 18 4:59 AM [facility] Neutrophils Absolute Manual 6.54 1.60 - 7.00 10 3/uL 11/19/2017 4:59 AM [facility] Comment:(BANDS+SEGS) x WBC = NEUT # (ANC) Lymphocyte Absolute Manual 0.61(L) 0.80 - 2.90 10 3/uL 11/19/2017 4:59 AM [facility] Monocytes Absolute Manual 0.46 0.14 - 0.66 10 3/uL 11/19/2017 4:59 AM [facility] Band % Manual 2 0 - 10 % 11/19/2017 4:59 AM [facility] Neutrophil % Manual 84(H) 30 - 60 % 11/19/2017 4:59 AM [facility] Lymphocyte % Manual 8(L) 20 - 45 % 11/19/2017 4:59 AM [facility] Monocytes % Manual 6 2 - 10 % 11/19/2017 4:59 AM [facility] Platelet Estimate Increased (A) Adequate 11/19/2017 4:59 AM [facility] Poikilocytes Few(A) None 11/19/2017 4:59 AM [facility] Smudge Cells Few(A) None 11/19/2017 4:59 AM [facility] Blood BLOOD SPECIMEN / Unknown Venipuncture / Unknown 11/19/2017 2:16 AM CDT 11/19/2017 2:48 AM CDT Danay Vogt EMBEDDED SOFTWARE PROGRAMMER-COMMERCIAL CENSUS TAKER LAB - HEMATOLOGY ORDERABLES [facility] [address] [phone] * (ABNORMAL) CBC W AUTO DIFFERENTIAL (11/19/2017 2:16 AM CDT) Only the most recent of15 resultswithin the time period is included. WBC 7.6 3.5 - 10.5 10 3/uL 11/19/2017 3:08 AM [facility] RBC 2.78(L) 4.30 - 5.70 10 6/uL 11/19/2017 3:08 AM [facility] Hemoglobin 8.0(L) 13.5 - 17.5 g/dL 11/19/2017 3:08 AM [facility] Hematocrit 24.4(L) 39.0 - 50.0 % 11/19/2017 3:08 AM [facility] MCV 87.8 81.0 - 97.0 fL 11/19/2017 3:08 AM [facility] MCH 28.8 28.0 - 34.0 pg 11/19/2017 3:08 AM [facility] MCHC 32.8 32.0 - 36.0 g/dL 11/19/2017 3:08 AM [facility] Platelet Count 780(H) 150 - 400 10 3/uL 11/19/2017 3:08 AM [facility] RDW-SD 46.7 36.0 - 50.0 fL 11/19/2017 3:08 AM [facility] RDW-CV 14.5 11.2 - 14.8 % 11/19/2017 3:08 AM [facility] MPV 9.0(L) 9.3 - 12.8 fL 11/19/2017 3:08 AM [facility] Blood BLOOD SPECIMEN / Unknown Venipuncture / Unknown 11/19/2017 2:16 AM CDT 11/19/2017 2:48 AM CDT Danay Vogt EMBEDDED SOFTWARE PROGRAMMER-COMMERCIAL CENSUS TAKER LAB - HEMATOLOGY ORDERABLES [facility] [address] [phone] * (ABNORMAL) CBC W/O DIFFERENTIAL (11/18/2017 10:47 AM CDT) Only the most recent of3 resultswithin the time period is included. WBC 8.7 3.5 - 10.5 10 3/uL 11/18/2017 11:21 AM [facility] Comment:Confirmed by repeat analysis. RBC 2.90(L) 4.30 - 5.70 10 6/uL 11/18/2017 11:21 AM [facility] Hemoglobin 8.4(L) 13.5 - 17.5 g/dL 11/18/2017 11:21 AM [facility] Comment:Confirmed by repeat analysis. Hematocrit 25.4(L) 39.0 - 50.0 % 11/18/2017 11:21 AM [facility] MCV 87.6 81.0 - 97.0 fL 11/18/2017 11:21 AM [facility] MCH 29.0 28.0 - 34.0 pg 11/18/2017 11:21 AM [facility] MCHC 33.1 32.0 - 36.0 g/dL 11/18/2017 11:21 AM [facility] Platelet Count 811(H) 150 - 400 10 3/uL 11/18/2017 11:21 AM [facility] RDW-SD 46.5 36.0 - 50.0 fL 11/18/2017 11:21 AM [facility] RDW-CV 14.4 11.2 - 14.8 % 11/18/2017 11:21 AM [facility] MPV 9.3 9.3 - 12.8 fL 11/18/2017 11:21 AM CDT [facility] Blood BLOOD SPECIMEN / Unknown Lab Venipuncture / Unknown 11/18/2017 10:47 AM CDT 11/18/2017 11:01 AM CDT Danay Noe Vogt EMBEDDED SOFTWARE PROGRAMMER-COMMERCIAL CENSUS TAKER LAB - HEMATOLOGY ORDERABLES [facility] [address] [phone] * (ABNORMAL) BASIC METABOLIC PANEL (CALCIUM TOTAL) (11/18/2017 2:36 AM CDT) Only the most recent of14 resultswithin the time period is included. BUN 14 7 - 26 mg/dL 11/18/2017 3:33 AM [facility] Creatinine 0.6 0.6 - 1.2 mg/dL 11/18/2017 3:33 AM [facility] Sodium 136 136 - 145 mmol/L 11/18/2017 3:33 AM [facility] Potassium 4.1 3.5 - 4.5 mmol/L 11/18/2017 3:33 AM [facility] Chloride 106 98 - 107 mmol/L 11/18/2017 3:33 AM [facility] CO2 24 22 - 29 mmol/L 11/18/2017 3:33 AM [facility] Glucose 103 70 - 115 mg/dL 11/18/2017 3:33 AM [facility] Calcium 7.4(L) 8.4 - 10.2 mg/dL 11/18/2017 3:33 AM [facility] Anion Gap 10 8 - 18 11/18/2017 3:33 AM [facility] BUN/Creatinine Ratio 23 7 - 23 11/18/2017 3:33 AM [facility] Osmolality Calculated 283 270 - 300 mOsm/kg 11/18/2017 3:33 AM [facility] eGFR >60 >60 mL/min/1.7 3 m2 11/18/2017 3:33 AM [facility] Blood BLOOD SPECIMEN / Unknown Line Draw / Unknown 11/18/2017 2:36 AM CDT 11/18/2017 3:11 AM CDT Kvng Lima Jr., MD LAB - CHEMISTR Y ORDERABLES Performing Organization Address City/[facility] Co de Phone Number [address] [phone] * PHOSPHORUS BLOOD (11/18/2017 2:36 AM CDT) Only the most recent of13 resultswithin the time period is included. Phosphorus 2.9 2.3 - 4.7 mg/dL 11/18/2017 3:30 AM CDT [facility] Blood BLOOD SPECIMEN / Unknown Line Draw / Unknown 11/18/2017 2:36 AM CDT 11/18/2017 3:11 AM CDT Kvng Lima Jr., MD LAB - CHEMISTR Y ORDERABLES Performing Organization Address [facility] Co de Phone Number [address] [phone] * MAGNESIUM BLOOD (11/18/2017 2:36 AM CDT) Only the most recent of12 resultswithin the time period is included. Magnesium 1.7 1.6 - 2.6 mg/dL 11/18/2017 3:30 AM CDT [facility] Blood BLOOD SPECIMEN / Unknown Line Draw / Unknown 11/18/2017 2:36 AM CDT 11/18/2017 3:11 AM CDT Kvng Lima Jr., MD LAB - CHEMISTR Y ORDERABLES [address] [phone] * (ABNORMAL) CALCIUM IONIZED WHOLE BLOOD (11/17/2017 2:51 AM CDT) Only the most recent of11 resultswithin the time period is included. Ionized Calcium Whole Blood 1.09 mmol/L 11/17/2017 3:23 AM CDT [facility] Adjusted Ionized Calcium 1.12(L) 1.19 - 1.34 mmol/L 11/17/2017 3:23 AM CDT [facility] pH Whole Blood 7.45 7.35 - 7.45 11/17/2017 3:23 AM CDT [facility] Blood BLOOD SPECIMEN / Unknown Line Draw / Unknown 11/17/2017 2:51 AM CDT 11/17/2017 3:12 AM CDT Thomas Rojas MD LAB - CHEMISTRY ISAURA REBOLLEDO Performing Organization Address City/[facility]/ZIP Co de Phone Number [facility] [address] [phone] * CULTURE WOUND+GRAM STAIN (11/16/2017 12:58 PM CDT) Culture No growth MAKENNA 11/24/2017 1:28 PM CDT [facility] Gram Stain Moderate White blood cells 11/24/2017 1:28 PM CDT [facility] Gram Stain No organisms seen 11/24/2017 1:28 PM CDT [facility]CRO[facility] Microbiology ENTIRE PLEURAL CAVITY / Unknown Collection / Unknown 11/16/2017 12:58 PM CDT 11/16/2017 3:24 PM CDT Sai Campos MD LAB - MICROBIOLOGY ORDERABLES Performing Organization Address [facility] Co de Phone Number [facility]CROBIOLOGY [address] [place] [address], [facility] [phone] * CULTURE ANAEROBE (11/16/2017 12:58 PM CDT) Culture No anaerobic organisms isolated MAKENNA 11/24/2017 8:28 AM CDT [facility] MICROBIOLOGY Microbiology ENTIRE PLEURAL CAVITY / Unknown Collection / Unknown 11/16/2017 12:58 PM CDT 11/16/2017 3:24 PM CDT Sai Campos MD LAB - MICROBIOLOGY ORDERABLES Performing Organization Address [facility] Co de Phone Number [facility] MICROBIOLOGY [address] [place] [address], [facility] [phone] * (ABNORMAL) BLOOD GASES ART COMPLETE [facility] OR (11/16/2017 12:44 PM [facility]) Only the most recent of3 resultswithin the time period is included. pH Arterial 7.40 7.35 - 7.45 11/16/2017 12:47 PM [facility] pCO2 Arterial 40 35 - 45 mmHg 11/16/2017 12:47 PM [facility] pO2 Arterial 137(H) 82 - 106 mmHg 11/16/2017 12:47 PM [facility] HCO3 Arterial 23.8 22.0 - 26.0 mmol/L 11/16/2017 12:47 PM [facility] TCO2 Arterial 25.0 25.0 - 29.0 mmol/L 11/16/2017 12:47 PM [facility] Base Excess Arterial -0.9 -2.0 - 2.0 mmol/L 11/16/2017 12:47 PM [facility] Hemoglobin Arterial 11.1(L) 13.5 - 17.5 g/dL 11/16/2017 12:47 PM [facility] Oxyhemoglobin Arterial 97.7 95.0 - 100.0 % 11/16/2017 12:47 PM [facility] Carboxyhemoglobin 0.3 0.0 - 3.0 % 11/16/2017 12:47 PM [facility] Methemoglobin 0.4 0.0 - 2.0 % 11/16/2017 12:47 PM [facility] FI O2 Arterial 60.0 % 11/16/2017 12:47 PM [facility] Ionized Calcium Whole Blood 1.04 mmol/L 11/16/2017 12:47 PM [facility] Adjusted Ionized Calcium 1.04(L) 1.19 - 1.34 mmol/L 11/16/2017 12:47 PM [facility] Sodium Whole Blood 134(L) 135 - 145 mmol/L 11/16/2017 12:47 PM [facility] Potassium Whole Blood 4.3 3.5 - 5.5 mmol/L 11/16/2017 12:47 PM [facility] Chloride Whole Blood 104 101 - 111 mmol/L 11/16/2017 12:47 PM [facility] Glucose Whole Blood 102 70 - 110 mg/dL 11/16/2017 12:47 PM CDT [facility] Lactic Acid Whole Blood 0.7 0.5 - 3.4 mmol/L 11/16/2017 12:47 PM CDT [facility] Blood ARTERIAL BLOOD SPECIMEN / Unknown Venipuncture / Unknown 11/16/2017 12:44 PM CDT 11/16/2017 12:44 PM CDT Sai Hooks MD LAB - BLOOD GASES OR DERABLES [address] [phone] * PREPARE (CROSSMATCH) RBC UNIT(S), 1 Units (11/16/2017 6:02 AM CDT) Only the most recent of5 resultswithin the time period is included. Unit Description N/A [facility] Blood Bank BLOOD SPECIMEN / Unknown 11/16/2017 6:02 AM CDT 11/16/2017 6:02 AM CDT Sai Martínez MD LAB - BLOOD BANK O RDERABLES Performing Organization Address [facility] Co de Phone Number [facility] [address] [place] [address] * TYPE + SCREEN PANEL (11/16/2017 5:58 AM CDT) Only the most recent of3 resultswithin the time period is included. Antibody Screen NEG 8 6:42 AM CDT [facility] ABO Rh O POS 11/16/2017 6:42 AM CDT [facility] Blood Bank BLOOD SPECIMEN / Unknown Venipuncture / Unknown 11/16/2017 5:58 AM CDT 11/16/2017 6:01 AM CDT Zachary Lima MD LAB - BLOOD BANK ORDERABLES Performing Organization Address [facility]/ZIP Co de Phone Number [facility] [address] [place] [address] * CT CHEST W CONTRAST (11/15/2017 5:02 [...] or infection. Dictated by Enoc Flores MD (associate professor of radiology). I, Dr. DIAZ PATEL M.D. have personally reviewed and interpreted this examination/study. This report was electronically signed by DIAZ PATEL M.D. on 11/16/2017 9:10 AM . Narrative 11/16/2017 9:10 [...] or infection. Dictated by Enoc Flores MD (associate professor of radiology). I, Dr. DIAZ PATEL M.D. have personally reviewed and interpreted this examination/study. This report was electronically signed by DIAZ PATEL M.D. on 11/16/2017 9:10 AM . Jessica Nielsen MD CT ORDERABLES * CT PLEURAL DRAIN (11/14/2017 3:14 PM CDT) Anatomical Region Laterality Modality Computed Tomogra phy 11/15/2017 9:27 AM CDT Impressions 11/21/2017 2:53 PM CDT Impression: Ultrasound guided placement of a 10 [place]inese APDL (pig tail) catheter in the right pleural space, as described above. Follow up: The catheter is open for external drainage and record the output. The catheter removal can be performed depending upon patient clinical status and output. Dictated by Charbel Clark MD (resident). Dr. Marla Ayers, performed/was present throughout the procedure and provided the moderate sedation service. Please see nursing flow chart for more details. This report was approved by Charbel Clark M.D. on 11/15/2017 9:29 AM . IDr. MARAL M.D. have personally reviewed and interpreted this examination/study. This report was electronically signed by MARLA SHEN M.D. on 11/21/2017 2:53 PM . Narrative 11/21/2017 2:53 [...] right chest. 2.Ultrasound guided placement of 10 Beninese APDL (pig tail) in the right pleural space. Start time: 2:00 PM Sedation Initiated Time: 2:10 PM End Time: 3:08 PM Procedure in Detail: [...] and following series of dilatation/exchanges a 10 Beninese APDL (pig tail) catheter was advanced. The initial aspirate was serosanguineous and approximately 10 cc amount of fluid was drained. A final ultrasound imaging showed the catheter in satisfactory position. There was no immediate complication like hemorrhage noted. The patient tolerated the procedure and sedation well. The patient was transferred to [facility] area in stable condition. Procedure Note Marla [...] right chest. 2.Ultrasound guided placement of 10 Beninese APDL (pig tail) in the right pleural [...] and following series of dilatation/exchanges a 10 [place]inese APDL (pig tail) catheter was advanced. The initial aspirate was serosanguineous and approximately 10 cc amountof fluid was drained. A final ultrasound imaging showed the catheter in satisfactory position. There was no immediate complication like hemorrhage noted. The patient tolerated the procedure and sedation well. The patient was transferred to holding area in stable condition. Impression: Ultrasound guided placement of a 10 [place]inese APDL (pig tail) catheter in the right pleural space, as described above. Follow up: The catheter is open for external drainage and record the output. The catheter removal can be performed depending upon patient clinical status and output. Dictated by Charbel Clark MD (resident). Dr. Marla Ayers, performed/was present throughout the procedure and provided the moderate sedation service. Please see nursing flow chartfor more details. This report was approved by Charbel Clark M.D. on 11/15/2017 9:[address] MARLA Ayers M.D. have personally reviewed and interpreted this examination/study. This report was electronically signed by MARLA SHEN M.D. on11/21/2017 2:53 PM . Zack Luis Bhatt MD CT ORDERABLES * (ABNORMAL) BLOOD GASES ART (11/13/2017 12:42 AM T) Only the most recent of19 resultswithin the time period is included. pH Arterial 7.54(H) 7.35 - 7.45 11/13/2017 12:55 AM [facility] pCO2 Arterial 29(L) 35 - 45 mmHg 11/13/2017 12:55 AM [facility] pO2 Arterial 101 82 - 106 mmHg 11/13/2017 12:55 AM [facility] HCO3 Arterial 24.3 22.0 - 26.0 mmol/L 11/13/2017 12:55 AM [facility] TCO2 Arterial 25.3 25.0 - 29.0 mmol/L 11/13/2017 12:55 AM [facility] Base Excess Arterial 1.9 -2.0 - 2.0 mmol/L 11/13/2017 12:55 AM [facility] Hemoglobin Arterial 7.9(L) 13.5 - 17.5 g/dL 11/13/2017 12:55 AM [facility] Oxyhemoglobin Arterial 96.7 95.0 - 100.0 % 11/13/2017 12:55 AM [facility] Carboxyhemoglobin 0.3 0.0 - 3.0 % 11/13/2017 12:55 AM [facility] Methemoglobin 0.2 0.0 - 2.0 % 11/13/2017 12:55 AM [facility] FI O2 Arterial 55.0 % 11/13/2017 12:55 AM [facility] Blood, arterial ARTERIAL BLOOD SPECIMEN / Unknown Arterial Puncture / Unknown 11/13/2017 12:42 AM CDT 11/13/2017 12:50 AM CDT Zack Bhatt MD LAB - BLOOD GASES OR DERABLES Performing Organization Address City/[facility]/ZIP Co de Phone Number [address] [phone] * CALCIUM BLOOD (11/12/2017 6:39 AM CDT) Calcium 8.6 8.4 - 10.2 mg/dL 11/12/2017 7:15 AM [facility] Comment:Confirmed by repeat analysis. Blood BLOOD SPECIMEN / Unknown Venipuncture / Unknown 11/12/2017 6:39 AM CDT 11/12/2017 6:42 AM CDT Sherri Waller MD LAB - CHEMISTRY ORDERABLES [address] [phone] * (ABNORMAL) HEMOGLOBIN (11/11/2017 5:08 PM CDT) Hemoglobin 7.5(L) 13.5 - 17.5 g/dL 11/11/2017 5:16 PM [facility] Blood BLOOD SPECIMEN / Unknown Venipuncture / Unknown 11/11/2017 5:08 PM CDT 11/11/2017 5:10 PM CDT Zachary Lima MD LAB - HEMATO LOGY ORDERABLES Performing Organization Address City/[facility]/ZIP Co de Phone Number [address] [phone] * CULTURE BRONCHIAL WASHING+GRAM STAIN (11/11/2017 1:36 PM CDT) Pathologist [facility] Culture Light normal oropharyngeal shazia MAKENNA 11/13/2017 5:23 AM CDT [facility] Gram Stain No organisms seen 018 5:23 AM CDT [facility] Microbiology SPECIMEN FROM LUNG OBTAINED BY BRONCHIAL WASHING PROCEDURE / Unknown Collection / Unknown 11/11/2017 1:36 PM CDT 11/11/2017 1:44 PM CDT Dior Ahmadi MD LAB - MICROBIOLOGY O RDERAJAZLYN Performing Organization Address [facility]/ZIP Co de Phone Number [facility] [address] [place] [address], [facility] [phone] * TRANSFUSE RED BLOOD CELL UNIT(S) (11/11/2017 4:59 AM CDT) Kole Gregory MD NURSING - BLOOD PROD TRANSFUSION * (ABNORMAL) VANCOMYCIN LEVEL TROUGH (11/11/2017 12:00 AM CDT) Pathologist [facility] Vancomycin Trough 2.9(L) 10.0 - 20.0 mcg/mL 11/11/2017 1:13 AM CDT [facility] Blood BLOOD SPECIMEN / Unknown Venipuncture / Unknown 11/11/2017 12:00 AM CDT 11/11/2017 12:15 AM CDT Skip Schmid MD LAB - CHEMISTRY ISAURA REBOLLEDO Performing Organization Address City/[facility]/[place] [address], [facility] [phone] * CT CHEST WO CONTRAST (11/10/2017 6:46 [...] the neck. Dictated by Charbel Clark MD (associate professor of radiology). I, Dr. Alexandra BARTLETT M.D. have personally reviewed and interpreted this examination/study. This report was electronically signed by Alexandra BARTLETT M.D. on 11/11/2017 10:56 AM . Narrative 11/11/2017 10:56 [...] the neck. Dictated by Charbel Clark MD (associate professor of radiology). IDr. Alexandra M.D. have personally reviewed and interpretedthis examination/study. This report was electronically signed by Alexandra BARTLETT M.D. on 11/11/2017 10:56 AM . Norma Pride MD CT ORDERABLES * CULTURE BRONCHOALVEOLAR LAVAGE QNT+GRAM STAIN (11/09/2017 6:04 PM CDT) Culture 10,000-50,000 CFU/mL normal oropharyngeal shazia MAKENNA 11/12/2017 5:29 AM CDT [facility] Gram Stain No organisms seen 018 5:29 AM CDT [facility] Microbiology BRONCHIOLOALVEOLAR LAVAGE / Unknown Collection / Unknown 11/09/2017 6:04 PM CDT 11/09/2017 6:38 PM CDT Thomas Rojas MD LAB - MICROBIOLOGY O RDERABLES [facility] [address] [place] [address], [facility] [phone] * ORGANISM ID W REFLEX SUSCEPTIBILITY (11/08/2017 11:50 AM CDT) [facility] Prelim Report SEE NOTE 11/14/2017 10:43 AM CDT [facility] ([facility]) Comment: Pseudomonas species Susceptibility to follow. Unable to identify organism to species level Identification by MALDI-TOF Test developed and characteristics determined by [facility] [employer]. See Compliance Statement B: [employer]Personal/CS MAKENNA Amikacin <=1 Suscept Gentamicin 0.5 Suscept Cefepime 4 Suscept Minocycline 4 Suscept Imipenem 1 Suscept Meropenem 1 Suscept Ciprofloxacin <=0.12 Suscept Trimethoprim/Sulfamethoxazole 1/19 Suscept Piperacillin/Tazobactam 32/4 Intermed Aztreonam 16 Intermed Ceftazidime 16 Intermed Levofloxacin <=0.25 Suscept Ticarcillin/Clavulanate 128/2 Resist Tobramycin 0.5 Suscept Performed by [facility], [address] [facility],[place] [id number] [email or web address], Hari Vallecillo MD, Lab. Director Final Report SEE NOTE 11/14/2017 10:43 AM CDT [facility] ([facility]) Comment: Pseudomonas species Unable to identify organism to species level Identification by MALDI-TOF Test developed and characteristics determined by [facility]. See Compliance Statement B: [employer]Personal/CS MAKENNA Amikacin <=1 Suscept Gentamicin 0.5 Suscept Cefepime 4 Suscept Minocycline 4 Suscept Imipenem 1 Suscept Meropenem 1 Suscept Ciprofloxacin <=0.12 Suscept Trimethoprim/Sulfamethoxazole 1/19 Suscept Piperacillin/Tazobactam 32/4 Intermed Aztreonam 16 Intermed Ceftazidime 16 Intermed Levofloxacin <=0.25 Suscept Ticarcillin/Clavulanate 128/2 Resist Tobramycin 0.5 Suscept Performed by [facility], [address] [facility],[place] [id number] [email or web address], Hari Vallecillo MD, Lab. Director Microbiology SPUTUM / Unknown Collection / Unknown 11/08/2017 11:50 AM CDT 11/08/2017 2:03 PM CDT Thomas Rojas MD LAB - MICROBIOLOGY O RDERABLES [facility] ([facility]) [address] [place] [address], [facility] * (ABNORMAL) CULTURE SPUTUM+GRAM STAIN (11/08/2017 11:50 AM CDT) Culture Heavy Acinetobacter baumannii complex(A) MAKENNA 11/14/2017 1:51 PM CDT [facility] Culture Moderate Pseudomonas species(A) MAKENNA 11/14/2017 1:51 PM CDT [facility] Comment: Referred to [facility] Laboratories for identification and susceptibility Referred to [facility] [address] [place] [address] See separate reference laboratory report Culture Light normal oropharyngeal shazia MAKENNA 11/14/2017 1:51 PM CDT [facility] Gram Stain Rare Yeast 11/14/2017 1:51 PM CDT [facility] Gram Stain Rare Gram-positive cocci 11/14/2017 1:51 PM CDT [facility] Gram Stain <10 per low power field Squamous epithelial cells 11/14/2017 1:51 PM CDT [facility] Gram Stain >= 25 per low power field Polymorphonuclear cells 11/14/2017 1:51 PM CDT [facility] Microbiology SPUTUM / Unknown Collection / [...] Rojas MD LAB - MICROBIOLOGY O RDERABLES [facility] MICROBIOLOGY [address] [place], [place] [address] [phone] * (ABNORMAL) URINALYSIS REFLEX TO MICROSCOPIC NO CULTURE (11/08/2017 11:50 AM [facility]) Color UA Yellow Straw, Yellow, Colorless, Light Yellow 11/08/2017 12:08 PM [facility] Clarity UA Clear Clear 11/08/2017 12:08 PM [facility] Specific [place] UA 1.027 1.001 - 1.030 11/08/2017 12:08 PM [facility] pH UA 5.5 5.0 - 8.0 11/08/2017 12:08 PM [facility] Protein UA 50(A) <=20 mg/dL 11/08/2017 12:08 PM [facility] Glucose UA Negative Negative mg/dL 11/08/2017 12:08 PM [facility] Ketone UA Negative Negative mg/dL 11/08/2017 12:08 PM [facility] Bilirubin UA Negative Negative mg/dL 11/08/2017 12:08 PM [facility] Blood UA Trace(A) Negative 11/08/2017 12:08 PM [facility] Nitrite UA Negative Negative 11/08/2017 12:08 PM [facility] Leukocyte Esterase Negative Negative 11/08/2017 12:08 PM [facility] Urobilinogen UA <2.0 <2.0 mg/dL 8 12:08 PM [facility] RBC UA 3 0 - 8 /HPF 11/08/2017 12:08 PM [facility] WBC UA 1 0 - 2 /HPF 11/08/2017 12:08 PM [facility] Bacteria UA Rare Rare, Occasional, None /HPF 11/08/2017 12:08 PM [facility] Squamous Epithelial Cells UA <1 0 - 1 /HPF 11/08/2017 12:08 PM [facility] Mucus UA Many(A) None /LPF 11/08/2017 12:08 PM [facility] Urine URINE SPECIMEN OBTAINED VIA [employer] URINARY CATHETER / Unknown Collection / Unknown 11/08/2017 11:50 AM T 11/08/2017 11:55 AM CDT Thomas Rojas MD LAB - URINALYSIS ORD ERABLES Performing Organization Address [facility] Co de Phone Number [facility] [address] [place] [address], [facility] [phone] * CULTURE URINE (11/08/2017 11:50 AM CDT) Culture Urine No growth (<1,000 CFU/mL) MAKENNA 11/10/2017 8:51 AM CDT [facility] MICROBIOLOGY Urine URINE SPECIMEN OBTAINED VIA [facility] URINARY CATHETER / Unknown Collection / Unknown 11/08/2017 11:50 AM CDT 11/08/2017 11:55 AM CDT Thomas Rojas MD LAB - MICROBIOLOGY O RDERABLES Performing Organization Address [facility] Co de Phone Number [facility] MICROBIOLOGY [address] [place] [address], [facility] [phone] * CULTURE BLOOD (11/08/2017 11:43 AM CDT) Only the most recent of2 resultswithin the time period is included. Culture No growth day 5 MAKENNA 11/13/2017 4:00 PM CDT [facility] MICROBIOLOGY Blood PERIPHERAL BLOOD / Unknown Line Draw / Unknown 11/08/2017 11:43 AM CDT 11/08/2017 11:55 AM CDT Thomas Rojas MD LAB - MICROBIOLOGY O RDERABLES Performing Organization Address [facility] Co de Phone Number [facility] MICROBIOLOGY [address] [place] [address], [facility] [phone] * XR ABDOMEN KUB PORTABLE (11/06/2017 2:56 [...] AM. Report dictated by Rosie Blanco MD (associate professor of radiology). This report was approved by Shayy Blanco M.D. on 11/07/2017 10:[address] SIRENA Ayers MD have personally reviewed and interpreted this examination/study. This report was

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
[2024-08-02 11:05] LABS: EDUAAPPEAR Clear; EDUABILI Negative (Negative); EDUABLOOD Negative (Negative); EDUACOLOR1 Light/Pale; EDUAGLUCOSE Negative (Negative); EDUAKETONE Negative (Negative); EDUALEUKO Negative (Negative); EDUANITRATE Negative (Negative); EDUAPH 5.5; EDUAPROTEIN Negative (Negative); EDUAUROBILI 0.2
== END 2024-08-02 11:05 | disposition home or self-care (01) ==
PROVIDERS: Emergency Provider Nurse Practitioner Family; PCP Family Medicine
DX: R10.9 Unspecified abdominal pain (principal); F17.210 Nicotine dependence, cigarettes, uncomplicated
CPT/HCPCS: 81003; 87086; 99213; G0463